=== PATIENT | female | born 1940 | race Caucasian/White ===

== ENCOUNTER 2017-07-18 09:23 | Day surgery (SDC) | payer MEDICARE, BC ==
[~2017-07-18 09:23] MED LIST: Midazolam 1 MG/ML 2 ML SDV ONE; Propofol 200 MG/20 ML SDV ONE; Sodium Chloride 0.9% 10 ML ONE; fentaNYL 100 MCG/2 ML SDV ONE
[2017-07-18] MEDS: Lidocaine 1% with EPINEPHrine 1:100,000 50 ML MDV ONE ×2 (09:57→11:41)
[2017-07-18] MEDS ORDERED: Sodium Chloride 0.9% 1,000 ML IV SCH (10:00)
[2017-07-18] MEDS: Sodium Tetradecyl Sulfate 1% 20 MG/2 ML SDV ONE ×2 (10:05→11:41)
[2017-07-18] MEDS ORDERED: Propofol 200 MG/20 ML SDV ONE (11:29)
[2017-07-18] MEDS: Lidocaine 1% w/EPINEPHrine 50 ML, Sodium Bicarbonate 5 MEQ in Sodium Chloride 0.9% 950 ML INJECT SCH ×2 (11:31→12:00)
[2017-07-18 13:11] VITALS: BP 126/64
--- NOTE | 2017-07-27 11:36 | OR ---
DATE OF PROCEDURE: 07/18/2017 PROCEDURE PERFORMED: 1. Radiofrequency ablation of left greater saphenous vein. 2. Radiofrequency ablation of right greater saphenous vein. 3. Radiofrequency ablation of right anterior accessory vein. 4. Sclerotherapy, left leg, multiple. 5. Sclerotherapy, right leg, multiple. 6. Two-layer/two-stage compression wrapping, left leg ([id number]). 7. Compression wrapping, two-stage, right leg ([id number]). COMPLICATIONS: None. BUOY TENDER: None. ANESTHETIC: MAC/local. INDICATIONS: This is a pleasant 77-year-old female with a significant reflux disease requiring definitive treatment to address her reflux in her greater saphenous veins and anterior accessory veins. RISKS: Risks, benefits, alternatives, limitations including, but not limited to infection, bleeding, DVT formation, chronic nerve injury, and pain were explained to the patient and she wished to proceed. PROCEDURE IN DETAIL: The patient was placed in supine position. Left GSV was identified and accessed first. This was accessed using the standard technique which would be accessing via 21-gauge needle which would then be exchanged for a 35,000th wire. Once this was accessed, the skin was anesthetized with lidocaine. A single liset was created in the skin. A 7-[place] sheath was noted. The RFA probe was then be advanced to 3 cm from the saphenofemoral junction. Tumescent fluid was injected to be 1 cm jacket around this and this would be verified a second and third time. Direct even pressure was deployed as the probe was deployed proximally and distally and x1 in all segments. The sheath and device were then removed. Dermabond be applied. The same procedure was performed in the right leg on the greater saphenous vein and the anterior accessory vein. This was performed in the same manner, same fashion, same technique, in the same sequence using the same equipment. The only difference is, they were doubly accessed using the wire prior to sheath introduction. Once the RFA was deployed and of note, this was verified a 2nd and 3rd time prior to energy deployment as far as 3 cm in saphenofemoral junction. Sheath and device were removed and Dermabond was applied. Sclerotherapy was then performed in left and right legs. There was 6 on the right and 7 on the left. This was performed using 0.33% sodium tetradecyl. This was always drawn back to ensure intravascular injection only. No more than 2 mL injected in one location. A 2-stage [id number] compression wrapping using CoFlex system was then performed, left and right legs. This was performed in a standard [id number] fashion with proximal-to- distal gradient structure. The patient tolerated the procedure well. Kyle Ac MD /[id number]
== END 2017-07-18 13:53 | disposition home or self-care (01) ==
LOC: JP.SDS 09:23
PROVIDERS: ATTEND Surgery
DX: I83.813 Varicose veins of bilateral lower extremities with pain (principal); I10 Essential (primary) hypertension; E78.5 Hyperlipidemia, unspecified; Z98.890 Other specified postprocedural states; Z79.899 Other long term (current) drug therapy
CPT/HCPCS: 36471; 36475; 36476; J1642; J2704; J3010; J7040; J7050; J2250; J3490

== ENCOUNTER 2019-04-07 03:12 | Emergency (ER) | payer MEDICARE, BC ==
[2019-04-07] MEDS ORDERED: LORazepam 2 MG/ML SDV IVPUSH ONE (03:28)
[2019-04-07] MEDS ORDERED: Ondansetron 4 MG/2 ML SDV IVPUSH ONE (03:28)
[2019-04-07] MEDS ORDERED: methylPREDNISolone Sodium Succinate 125 MG/2 ML SDV IVPUSH ONE (03:30)
--- NOTE | 2019-04-07 03:36 | EDM.PDOC ---
<Jose Miguel Mcdonald - Last Filed: 04/07/19 06:55> ED HPI GENERAL MEDICAL PROBLEM - General Chief Complaint: Neurological Problem Stated Complaint: LIGHT HEADED,THROWING,DIZZY Time Seen by Provider: 04/07/19 03:25 Source of Information: Reports: Patient, Family History Limitations: Reports: No Limitations - History of Present Illness INITIAL COMMENTS - FREE TEXT/NARRATIVE: 78-year-old female woke tonight feeling vertiginous, unsteady, and became nauseous. She has no pain. She has not had symptoms like this in the past, however she does tend to get dehydrated easy. She has vomited several times and feels "lousy". When lying still she feels a little better. No headache, visual complaints, peripheral weakness or diarrhea. Onset: Sudden (When the patient went to bed last night she was fine, when she woke at 1 AM she had symptoms) Worsens with: Reports: Movement Associated Symptoms: Reports: Malaise, Nausea/Vomiting, Weakness. Denies: Confusion, Fever/Chills, Headaches Chest Pain Score (Numeric/FACES): 1 - Related Data Allergies Allergy/AdvReac Type Severity Reaction Status Date / Time tetanus toxoid, adsorbed Allergy Severe Anaphylactic Verified 04/07/19 03:18 Shock Home Meds: Home Meds hydroCHLOROthiazide [Hydrochlorothiazide] 25 mg PO DAILY 03/08/14 [History] Acetaminophen [Tylenol] 650 mg PO Q4H PRN #0 cup 10/11/16 [Rx] Latanoprost [Xalatan 0.005% Ophth Soln] 1 drop EYEBOTH DAILY 07/18/17 [History] Timolol [Betimol 0.5% Ophth Soln] 1 drop EYEBOTH DAILY 07/18/17 [History] Past Medical History HEENT History: Reports: Cataract, Glaucoma, Impaired Vision Cardiovascular History: Reports: High Cholesterol, Hypertension Respiratory History: Reports: Bronchitis, Recurrent Gastrointestinal History: Reports: Chronic Diarrhea, GERD, Hiatal Hernia Genitourinary History: Reports: None TELEPHONE INFORMATION SUPERVISOR History: Reports: Other TELEPHONE INFORMATION SUPERVISOR History: blatter sling Musculoskeletal History: Reports: Osteoarthritis Endocrine/Metabolic History: Reports: None - Infectious Disease History Infectious Disease History: Reports: Chicken Pox - Past Surgical History HEENT Surgical History: Reports: Adenoidectomy, Cataract Surgery, Tonsillectomy GI Surgical History: Reports: Colonoscopy, EGD, David Fundoplication Female Surgical History: Reports: Hysterectomy, Oophorectomy Musculoskeletal Surgical History: Reports: Arthroscopic Knee, Shoulder Surgery Social & Family History - Family History Family Medical History: Noncontributory - Tobacco Use Smoking Status *Q: Never Smoker - Caffeine Use Caffeine Use: Reports: Coffee - Recreational Drug Use Recreational Drug Use: No ED ROS GENERAL - Review of Systems Review Of Systems: See Below Constitutional: Reports: Malaise, Decreased Appetite. Denies: Fever, Chills HEENT: Reports: No Symptoms Respiratory: Denies: Shortness of Breath, Cough Cardiovascular: Denies: Chest Pain GI/Abdominal: Reports: Nausea, Vomiting. Denies: Abdominal Pain, Diarrhea : Reports: No Symptoms Skin: Reports: No Symptoms Neurological: Reports: Dizziness. Denies: Headache ED EXAM, DIZZINESS - Physical Exam Exam: See Below Exam Limited By: No Limitations General Appearance: Alert, Mild Distress (Actively retching, very uncomfortable) Eye Exam: Bilateral Eye: Nystagmus (Slight nystagmus both directions) Ears: Normal TMs Head Exam: Atraumatic Neck: Supple, Non-Tender Respiratory/Chest: No Respiratory Distress, Lungs Clear Cardiovascular: Regular Rate, Rhythm GI/Abdominal: Soft, Non-Tender Neurological: Alert, No Motor/Sensory Deficits, Oriented x 3 Extremities: Normal Inspection. No: Pedal Edema Psychiatric: Flat Affect Skin Exam: Warm, Dry Course - Vital Signs Last Recorded V/S: Last Vital Signs Temp 35.7 C 04/07/19 08:58 Pulse 65 04/07/19 08:58 Resp 16 04/07/19 08:58 BP 112/63 04/07/19 08:58 Pulse Ox 96 04/07/19 08:58 - Orders/Labs/Meds Orders: Active Orders 24 hr Category Date Time Status Sodium Chloride 0.9% [Normal Saline] 1,000 ml Med 04/07/19 03:45 Active IV ASDIRECTED Sodium Chloride 0.9% [Normal Saline] 1,000 ml Med 04/07/19 07:15 Active IV ASDIRECTED Medication Orders Sodium Chloride (Normal Saline) 1,000 mls @ 500 mls/hr IV ASDIRECTED EMETERIO Last Admin: 04/07/19 03:49 Dose: 500 mls/hr Sodium Chloride (Normal Saline) 1,000 mls @ 999 mls/hr IV ASDIRECTED EMETERIO Last Admin: 04/07/19 07:20 Dose: 999 mls/hr Labs: Laboratory Tests 04/07/19 04/07/19 04/07/19 Range/Units 03:42 03:42 03:46 WBC 7.0 (4.5-11.0) K/uL RBC 4.54 (3.30-5.50) M/uL Hgb 12.4 (12.0-15.0) g/dL Hct 37.5 (36.0-48.0) % MCV 83 (80-98) fL MCH 27 (27-31) pg MCHC 33 (32-36) % Plt Count 241 (150-400) K/uL Neut % (Auto) 61 (36-66) % Lymph % (Auto) 26 (24-44) % Tate % (Auto) 9 H (2-6) % Eos % (Auto) 4 (2-4) % Baso % (Auto) 0 (0-1) % Sodium 141 (140-148) mmol/L Potassium 3.6 (3.6-5.2) mmol/L Chloride 105 (100-108) mmol/L Carbon Dioxide 25 (21-32) mmol/L Anion Gap 11.0 (5.0-14.0) mmol/L BUN 25 H D (7-18) mg/dL Creatinine 1.1 H (0.6-1.0) mg/dL Est Cr Clr Drug Dosing 37.32 mL/min Estimated GFR (MDRD) 48 L (>60) Glucose 136 H (74-106) mg/dL Calcium 9.1 (8.5-10.1) mg/dL Total Bilirubin 0.3 (0.2-1.0) mg/dL AST 22 (15-37) U/L ALT 26 (12-78) U/L Alkaline Phosphatase 119 H (46-116) U/L Troponin I < 0.017 (0.000-0.056) ng/mL Total Protein 6.8 (6.4-8.2) g/dL Albumin 3.7 (3.4-5.0) g/dL Globulin 3.1 (2.3-3.5) g/dL Albumin/Globulin Ratio 1.2 (1.2-2.2) Meds: Medications Generic Name Dose Route Start Last Admin Trade Name Freq PRN Reason Stop Dose Admin Sodium Chloride 1,000 mls @ 500 mls/hr 04/07/19 03:45 04/07/19 03:49 Normal Saline IV 500 mls/hr ASDIRECTED EMETERIO Administration Sodium Chloride 1,000 mls @ 999 mls/hr 04/07/19 07:15 04/07/19 07:20 Normal Saline IV 999 mls/hr ASDIRECTED EMETERIO Administration Discontinued Medications Generic Name Dose Route Start Last Admin Trade Name Jesusita PRN Reason Stop Dose Admin Lorazepam 0.5 mg 04/07/19 03:28 04/07/19 03:42 Ativan IVPUSH 04/07/19 03:29 0.5 mg ONETIME ONE Administration Meclizine HCl 25 mg 04/07/19 07:14 04/07/19 07:17 Antivert PO 04/07/19 07:15 25 mg ONETIME ONE Administration Methylprednisolone Sodium Succinate 62.5 mg 04/07/19 03:30 04/07/19 03:47 Solu-Medrol IVPUSH 04/07/19 03:31 62.5 mg ONETIME ONE Administration Ondansetron HCl 4 mg 04/07/19 03:28 04/07/19 03:43 Zofran IVPUSH 04/07/19 03:29 4 mg ONETIME ONE Administration - Re-Assessments/Exams Free Text/Narrative Re-Assessment/Exam: 04/07/19 03:39 An IV was started and the patient will be given 62.5 mg of Solu-Medrol, 0.5 mg of Ativan and 4 mg of IV Zofran. She'll be given 1 L of fluid and reevaluated. CBC and CMP were obtained, intent is to get a head CT in 1-2 hours and consider admission if she doesn't improve. 04/07/19 05:58 Labs returned reassuring. Mild renal insufficiency or dehydration indicated on the labs not far off from previous levels. Electrolytes normal, CBC normal. Nausea resolved. Head CT without contrast was performed. 04/07/19 06:[address] was normal. Patient was slowly feeling better. She would like to rest a little while longer before attempting to ambulate. Disposition was turned over to Dr. Bassett. Departure - Departure Disposition: Home, Self-Care 01 Clinical Impression: Vertigo Nausea and vomiting Qualifiers: Vomiting type: unspecified Vomiting Intractability: non-intractable Qualified Code(s): R11.2 - Nausea with vomiting, unspecified - Discharge Information Referrals: Fran De La Torre MD [Primary Care Provider] - Forms: ED Department Discharge Care Plan Goals: rest antivert 25 tid for the next 2 days and then prn, rtc if the situation should get worse. - My Orders Last 24 Hours: My Active Orders 04/07/19 07:15 Sodium Chloride 0.9% [Normal Saline] 1,000 ml IV ASDIRECTED - Assessment/Plan Last 24 Hours: My Active Orders 04/07/19 07:15 Sodium Chloride 0.9% [Normal Saline] 1,000 ml IV ASDIRECTED <Otilia Bassett - Last Filed: 04/07/19 09:11> Course - Re-Assessments/Exams Free Text/Narrative Re-Assessment/Exam: 04/07/19 08:23 pt gotup and was very off balance. She states the room was spinning lot. She was given another liter of fluid and antivert 25 mg. Will continue to watch in ER if not improving will consider admission. 04/07/19 09:09 pt is feeling some better. she still has some vertigo when she gets up. She does want to go to rest and not be admitted. Departure - Departure Time of Disposition: 09:10
[2019-04-07] MEDS ORDERED: Sodium Chloride 0.9% 1,000 ML IV SCH ×2 (03:45→07:15)
--- NOTE | 2019-04-07 06:45 | CRLCT ---
INDICATION : Nausea, vertigo sudden onset. COMPARISON : None. TECHNIQUE: CT head without contrast. FINDINGS: CSF spaces: Within normal limits for age. Brain parenchyma: The mcdaniel-white differentiation is normal. No sign of mass, hemorrhage, or midline shift. Skull base and calvarium: The visualized paranasal sinuses and mastoid air cells demonstrate no acute or significant findings. The visualized orbits are grossly unremarkable. No skull fractures. IMPRESSION: Unremarkable noncontrast head CT. Please note that all CT scans at this facility use dose modulation, iterative reconstruction, and/or weight-based dosing when appropriate to reduce radiation dose to as low as reasonably achievable. Dictated by Barry Wells MD @ Apr 07 2019 6:41AM Signed by Dr. Barry Wells @ Apr 07 2019 6:44AM
[2019-04-07] MEDS ORDERED: Meclizine 25 MG Tab PO ONE (07:14)
[2019-04-07 08:59] VITALS: BP 112/63; PULSE 65
== END 2019-04-07 09:23 | disposition home or self-care (01) ==
LOC: JP.ED 03:12
DX: R42 Dizziness and giddiness (principal); R11.2 Nausea with vomiting, unspecified; E78.00 Pure hypercholesterolemia, unspecified; I10 Essential (primary) hypertension; Z88.7 Allergy status to serum and vaccine; Z79.899 Other long term (current) drug therapy
CPT/HCPCS: 36415; 70450; 80053; 84484; 85025; 96361; 96374; 96375; 99284; A9270; J2060; J2405; J2930; J7030

== ENCOUNTER 2019-06-29 07:40 | Inpatient (IN) | payer MEDICARE, BC ==
[2019-06-29] MEDS ORDERED: ceFAZolin 2 GM in Sodium Chloride 0.9% 50 ML IV ONE (08:00)
[2019-06-29] MEDS ORDERED: Acetaminophen 500 MG Tab PO ONE (08:00)
[2019-06-29] MEDS ORDERED: Scopolamine 1.5 MG Transdermal Patch TOP ONE (08:00)
[2019-06-29] MEDS ORDERED: fentaNYL 250 MCG/5 ML SDV ONE (08:35)
[2019-06-29] MEDS ORDERED: Rocuronium 50 MG/5 ML Vial ONE (08:36)
[2019-06-29] MEDS ORDERED: Glycopyrrolate 0.2 MG/ML 5 ML MDV ONE (08:36)
[2019-06-29] MEDS ORDERED: Dexamethasone 4 MG/ML SDV ONE (08:36)
[2019-06-29] MEDS ORDERED: Propofol 200 MG/20 ML SDV ONE (08:36)
[2019-06-29] MEDS ORDERED: Succinylcholine 200 MG/10 ML MDV ONE (08:36)
[2019-06-29] MEDS ORDERED: Neostigmine Methylsulfate 1 MG/ML 5 ML Syringe ONE (08:36)
[2019-06-29] MEDS ORDERED: Ondansetron 4 MG/2 ML SDV ONE (08:36)
[2019-06-29] MEDS: Dextrose 5%-Lactated Ringers 1,000 ML IV SCH ×2 (09:04→18:10)
[2019-06-29] MEDS ORDERED: ePHEDrine 50 MG/ML SDV ONE (11:23)
[2019-06-29] MEDS ORDERED: Lactated Ringers 1,000 ML ONE (12:24)
[2019-06-29] MEDS ORDERED: HYDROmorphone 1 MG/ML Syringe IV PRN (14:44)
[2019-06-29] MEDS ORDERED: Ondansetron 4 MG/2 ML SDV IVPUSH PRN (14:44)
[2019-06-29] MEDS ORDERED: HYDROmorphone 0.5 MG/0.5 ML Syringe IVPUSH PRN (14:44)
[2019-06-29] MEDS: Acetaminophen 325 MG Tab PO SCH ×2 (16:30→21:55)
[2019-06-29] MEDS: ceFAZolin 1 GM in Premix Bag 1 BAG IV SCH (18:02)
[2019-06-29] MEDS: Latanoprost 0.005% Ophth Soln 2.5 ML Bottle EYEBOTH SCH (20:56)
[2019-06-30] MEDS: ceFAZolin 1 GM in Premix Bag 1 BAG IV SCH ×2 (01:53→10:13)
[2019-06-30] MEDS: Acetaminophen 325 MG Tab PO SCH ×5 (04:05→21:22)
[2019-06-30] MEDS: Dextrose 5%-Lactated Ringers 1,000 ML IV SCH (04:38)
[2019-06-30] MEDS ORDERED: Tamsulosin 0.4 MG Cap.ER PO SCH ×2 (09:00→21:00)
[2019-06-30] MEDS: Hydrochlorothiazide 25 MG Tab PO SCH (09:23)
[2019-06-30] MEDS: Timolol Maleate 0.5% Ophth Soln 5 ML Bottle EYEBOTH SCH (09:23)
[2019-06-30] MEDS: SCOPOLAMINE PATCH CHECK TOP SCH (09:24)
[2019-06-30] MEDS: Latanoprost 0.005% Ophth Soln 2.5 ML Bottle EYEBOTH SCH (20:56)
[2019-07-01] MEDS: Acetaminophen 325 MG Tab PO SCH ×2 (04:01→09:28)
[2019-07-01 07:23] VITALS: BP 148/66; PULSE 56
[2019-07-01] MEDS: Hydrochlorothiazide 25 MG Tab PO SCH (08:27)
[2019-07-01] MEDS: Timolol Maleate 0.5% Ophth Soln 5 ML Bottle EYEBOTH SCH (08:27)
[2019-07-01] MEDS: SCOPOLAMINE PATCH CHECK TOP SCH (08:30)
--- NOTE | 2019-07-01 09:43 | DISCH ---
ADMISSION DIAGNOSIS: Massive enlarged left thyroid lobe. DISCHARGE DIAGNOSIS: Thyroid exploration with left thyroid lobectomy and ischiectomy including excision of substernal goiter for massive enlarged left thyroid lobe with large substernal components and right tracheal deviation, single small 1 cm nodule within the goiter, benign by frozen section. Date of surgery: 06/29/2019. Surgeon: Jude Ornelas MD. HISTORY: Sol Anne is a 78-year-old female with above chief complaint. After preoperative evaluation and discussion of possible risks and possible complications, she wished to proceed with surgical procedure. HOSPITAL COURSE: Sol had her surgery on 06/29/2019. She had no operative complications with exception of urinary retention, so her Mares was placed and replaced on operative day, then discontinued this a.m., and she did void, so was able to be discharged to home. Pain has been controlled. Activity good. Vital signs stable. REVIEW OF SYSTEMS: Remainder of review of systems negative for any pertinent positives and negatives. OBJECTIVE: GENERAL: Sol Anne is a pleasant 78-year-old female. VITAL SIGNS: Height is 5 feet 5 inches, weight is 140 pounds, BMI is 23. TPR is 97.8, 56, 16, blood pressure 148/66. NECK: Reveals Steri-Stripped thyroid incision. No hematoma is noted. She has a ELIZABETH drain in that incision, which drained 10 mL of a dark red drainage. HEART: Regular rate and rhythm. LUNGS: Clear. ABDOMEN: Soft, nontender. EXTREMITIES: Without peripheral edema. DISPOSITION: Discharged to home. CONDITION: Stable and improving. MEDICATIONS: To restart all home medications. 1. Hydrochlorothiazide 25 mg p.o. daily. 2. Timolol (Betimol) 0.5% ophthalmic solution one drop in each eye daily. 3. Latanoprost/Xalatan 0.005% ophthalmic solution one drop in both eyes at bedtime. 4. Tylenol 650 mg p.o. q.6 hours p.r.n. pain. FOLLOWUP: Appointment with Ignacia Soria PA-C, on 07/09/2019 at 9:15 a.m. DIET: Usual diet as tolerated. Drink 8 to 10 glasses of water a day. Avoid hard crunchy foods. ACTIVITY: As tolerated. Avoid repetitive neck movement. Do not drive for 1 week. Shower/bathing; may shower. Wound incision care; keep operative site clean and dry. DISCHARGE INSTRUCTIONS: Notify provider if any fever, increased pain, swelling, redness, drainage, nausea, vomiting. SPECIAL INSTRUCTIONS: Strip and empty ELIZABETH drain 4 times a day.
--- NOTE | 2019-07-02 10:53 | PN ---
DATE OF SERVICE: 06/30/2019 The patient has been afebrile with stable vital signs. Her main complaint was frequent urination overnight, every hour, more or less, only a few mL. A bladder scan was obtained, which showed 650 mL. We will, therefore, place a Mares catheter and begin some Flomax today. We will try getting Mares catheter out tomorrow. She will need to be switched over to inpatient status due to the urinary retention. Otherwise, from a thyroid standpoint, she is doing well. We will go up to regular diet and she is having little in the way of pain at this point. Jude Ornelas MD /[id number]
--- NOTE | 2019-07-10 11:47 | OR ---
DATE OF PROCEDURE: 06/29/2019 SURGEON: Jude Ornelas MD PREOPERATIVE DIAGNOSIS: Large left substernal goiter with pressure symptoms and inability to obtain adequate tissue diagnosis due to abundant blood supply. POSTOPERATIVE DIAGNOSIS: Large left substernal goiter with pressure symptoms and inability to obtain adequate tissue diagnosis due to abundant blood supply. OPERATIVE PROCEDURE: Thyroid exploration with left thyroid lobectomy and isthmusectomy including excision of large left substernal goiter (81712). ANESTHESIA: General. PODIATRIST ASSISTANT: Ignacia Soria PA-C. INDICATIONS FOR PROCEDURE: This is a 78-year-old presenting with an increasingly enlarging left substernal thyroid and CT scan that shows quite a bit of rightward displacement of the trachea and esophagus. Fine-needle aspiration was attempted with 3 sizes of needles. In each case, the aspiration syringe immediately filled with blood due to large amount of blood supply involving the lesion. Given the uncertainty of the diagnosis, as well as increasing pressure symptoms likely resulting in some worsening in patient's respiratory status, the patient is undergoing a left thyroid lobectomy and resection of the substernal goiter. Frozen section will be obtained in the event that a malignancy is identified at that time, which would then necessitate a total thyroidectomy. Potential risks of the procedure including bleeding, infection, injury to the recurrent laryngeal nerve or parathyroid glands, possibility of needing a total thyroidectomy were reviewed. The need to begin long- term thyroid replacement therapy was also gone over, even if a lobectomy is undertaken, so as to avoid enlargement of the remaining right lobe. DETAILS OF PROCEDURE: The patient was taken to the operating room and placed in a supine position. After general endotracheal anesthesia was induced, the upper chest and neck were prepped and draped. A transverse collar incision was then made and carried down through the skin and subcutaneous tissue and through the platysmal layers. Subplatysmal flaps were then raised superiorly and inferiorly, and the strap muscles were then divided in the midline. General palpation of the right side of the thyroid through the strap muscles did not reveal any unexpected findings and left side was potentially not further dissected, so if later operation would be required, the planes of dissection will be unperturbed. Strap muscles were then retracted off the left thyroid and the suprasternal portion of gland was then initially mobilized medially and the middle thyroid vein and then the upper pole vessels were taken down with Harmonic scalpel. This then allowed blunt dissection down into the mediastinum. This extended well down onto the area of the aortic arch with displacement of both the left common carotid artery and left subclavian artery. As these areas were palpated with the plane of blunt dissection, the gland eventually then came up and the inferior thyroid vein was divided, as well some additional venous tributaries coming into the goiter. The size of the goiter below the neck was roughly the size of a chicken egg. At this point, the junction of the right lobe and the isthmus were divided with Harmonic scalpel and the inferior thyroid artery branches were then divided flush with the thyroid capsule, reflecting the 2 visible parathyroid glands away from the substance of the thyroid gland with evidently adequately maintaining blood supply. During the course of dissection, the recurrent laryngeal nerve was identified and noted to be preserved at the conclusion of the procedure. The remaining attachments on the trachea were then taken with Harmonic scalpel as well and specimen delivered from the field. Additional pathologic exam was generally that of a large benign-appearing goiter , where there was a roughly 1 cm nodule away from the surface of the gland, which was grossly mildly suspicious. Frozen section did not appear to be suspicious for malignancy, however. At this point, the area of dissection was inspected. There was no bleeding or other problems noted. The size of the dissection did mandate placement of 7-Greek Jarvis-Luis drain through a stab wound lateral to the main incision and draped from there into the left thyroid bed and into the upper mediastinum. The strap muscles were then approximated in the midline with 3-0 Vicryl stitch, the platysmal layers with 4-0 Vicryl stitch, and skin with a 5-0 Vicryl subcuticular stitch. Drain was affixed with 4-0 Vicryl stitch and dressing applied. The patient was taken to the recovery room in satisfactory condition. There were no evident complications. Physician first assistant manager, Ignacia Soria, played an essential role in assisting in this case, helping to position the patient, retract structures as needed, as well as suturing and cutting sutures when indicated. Her presence improved patient safety and decreased operative time. Jude Ornelas MD /[id number]
== END 2019-07-01 10:08 | disposition home or self-care (01) | DRG 627 ==
LOC: JP.SDS 07:40 → JP.SDSSCHI 07:40 → EDSTATUS 09:00 → JP.MS 12:47
PROVIDERS: ADMIT Surgery; ATTEND Surgery
PROC: 0GBG0ZZ Excision of Left Thyroid Gland Lobe, Open Approach (ICD-10-PCS; principal; 2019-06-29)
PROC: 0GBJ0ZZ Excision of Thyroid Gland Isthmus, Open Approach (ICD-10-PCS; 2019-06-29)
DX: E04.1 Nontoxic single thyroid nodule (principal); J39.8 Other specified diseases of upper respiratory tract; E78.5 Hyperlipidemia, unspecified; I10 Essential (primary) hypertension; H40.9 Unspecified glaucoma; R33.9 Retention of urine, unspecified; R35.0 Frequency of micturition; D86.0 Sarcoidosis of lung; E55.9 Vitamin D deficiency, unspecified; Z90.89 Acquired absence of other organs; Z98.890 Other specified postprocedural states; Z79.899 Other long term (current) drug therapy; Z88.7 Allergy status to serum and vaccine; Z88.8 Allergy status to other drugs, medicaments and biological substances; Z91.040 Latex allergy status
CPT/HCPCS: 36415; 51701; 51702; 80048; 80053; 83735; 84100; 84443; 85025; 85027; 88307; 88331; 94762; A9270-GY; J0330; J0690; J1100; J2020; J2405; J2704; J2710; J3010; J3490; J7042; J7050; J7120

== ENCOUNTER 2021-12-27 05:37 | Day surgery (SDC) | payer MEDICARE, BC ==
[2021-12-27] MEDS ORDERED: Lactated Ringers 1,000 ML IV SCH (06:00)
[2021-12-27] MEDS ORDERED: Nozin Nasal Sanitizer NASBOTH ONE (06:00)
[2021-12-27] MEDS ORDERED: ceFAZolin 1 GM in Premix Bag 1 BAG IV ONE (07:00)
[2021-12-27] MEDS ORDERED: Bupivacaine 0.5% 30 ML SDV ONE (07:09)
[2021-12-27] MEDS ORDERED: Lidocaine 0.5% 50 ML SDV ONE (07:32)
[2021-12-27] MEDS ORDERED: fentaNYL 100 MCG/2 ML SDV ONE (07:32)
[2021-12-27] MEDS ORDERED: Propofol 200 MG/20 ML SDV ONE (07:32)
[2021-12-27] MEDS ORDERED: Midazolam 1 MG/ML 2 ML SDV ONE (07:32)
[2021-12-27] MEDS ORDERED: Ondansetron 4 MG/2 ML SDV ONE (08:11)
[2021-12-27 09:41] VITALS: BP 130/64; PULSE 57
== END 2021-12-27 10:29 | disposition home or self-care (01) ==
LOC: JP.SDS 05:37
PROVIDERS: ATTEND Specialist
DX: M65.351 Trigger finger, right little finger (principal); I10 Essential (primary) hypertension; J44.9 Chronic obstructive pulmonary disease, unspecified; K21.9 Gastro-esophageal reflux disease without esophagitis; E78.5 Hyperlipidemia, unspecified; Z87.891 Personal history of nicotine dependence
CPT/HCPCS: 26055; 36415; 80053; 85027; A9270-GY; J0690; J2250; J2405; J2704; J3010; J3490; J7120

== ENCOUNTER 2022-08-18 19:10 | Emergency (ER) | payer MEDICARE, BC ==
[2022-08-18 19:21] VITALS: BP 155/81; PULSE 73
== END 2022-08-18 20:07 | disposition home or self-care (01) ==
LOC: JP.ED 19:10
DX: J18.9 Pneumonia, unspecified organism (principal); J38.5 Laryngeal spasm; E78.00 Pure hypercholesterolemia, unspecified; I10 Essential (primary) hypertension; Z88.7 Allergy status to serum and vaccine; Z91.040 Latex allergy status; Z79.899 Other long term (current) drug therapy; Z88.8 Allergy status to other drugs, medicaments and biological substances; Z90.710 Acquired absence of both cervix and uterus
CPT/HCPCS: 99283

== ENCOUNTER 2023-02-25 06:12 | Inpatient (IN) | payer MEDICARE, BC ==
[2023-02-25] MEDS ORDERED: Bupivacaine 0.5% 50 ML MDV ONE (06:46)
[2023-02-25 06:48] LABS: HEMATOCRIT 35.8 % (34.3-46.0); HEMOGLOBIN 12.2 g/dL (11.2-15.5); MEAN CORPUSCULAR HEMOGLOBIN 27.5 pg (31.6-35.5); MEAN CORPUSCULAR HGB CONC 34.1 g/dL (31.6-35.5); MEAN CORPUSCULAR VOLUME 80.8 fL (81.4-99.0); RED BLOOD CELL COUNT 4.43 M/uL (3.77-5.24); WHITE BLOOD CELL COUNT,WBC 5.1 K/uL (3.2-11.0)
[2023-02-25] MEDS ORDERED: Lactated Ringers 1,000 ML IV SCH (07:00)
[2023-02-25 07:09] LABS: A/G RATIO 1.2 (1.2-2.2); ALANINE AMINOTRANSFERASE,ALT 24 U/L (12-78); ALBUMIN 4.1 g/dL (3.4-5.0); ALKALINE PHOSPHATASE 116 U/L (46-116); ASPARTATE AMNIOTRANSFERASE,AST 23 U/L (15-37); BILIRUBIN TOTAL 0.5 mg/dL (0.2-1.0); BLOOD UREA NITROGEN,BUN 21 mg/dL (7-18); CALCIUM 8.8 mg/dL (8.5-10.1); CARBON DIOXIDE,CO2 24 mmol/L (21-32); CHLORIDE,CL 98 mmol/L (100-108); CREATININE 1.3 mg/dL (0.6-1.0); EST CRCL DRUG DOSING (CG) 27.12 mL/min; ESTIMATED GFR 41 mL/min (>60); GLUCOSE RANDOM 111 mg/dL (74-106); POTASSIUM,K 3.7 mmol/L (3.6-5.2); PROTEIN TOTAL,TP 7.4 g/dL (6.4-8.2); SODIUM,NA 135 mmol/L (140-148)
[2023-02-25 07:10] LABS: ANION GAP 16.7 mmol/L (5.0-14.0)
[2023-02-25] MEDS ORDERED: Propofol 200 MG/20 ML SDV ONE (07:12)
[2023-02-25] MEDS ORDERED: fentaNYL 100 MCG/2 ML SDV ONE (07:12)
[2023-02-25] MEDS ORDERED: Ondansetron 4 MG/2 ML SDV ONE (07:12)
[2023-02-25] MEDS: Nozin Nasal Sanitizer NASBOTH SCH ×2 (07:15→20:08)
[2023-02-25] MEDS ORDERED: Glycopyrrolate 0.2 MG/ML 5 ML MDV ONE (07:16)
[2023-02-25] MEDS ORDERED: Sodium Chloride 0.9% 10 ML ONE (07:17)
[2023-02-25] MEDS ORDERED: ePHEDrine 50 MG/ML SDV ONE (07:17)
[2023-02-25] MEDS ORDERED: ceFAZolin 2 GM in Premix Bag 1 BAG IV ONE (07:30)
[2023-02-25] MEDS ORDERED: Tranexamic Acid 650 MG in Sodium Chloride 0.9% 50 ML IV ONE (08:00)
[2023-02-25] MEDS ORDERED: Midazolam 1 MG/ML 2 ML SDV ONE (08:41)
[2023-02-25] MEDS ORDERED: Docusate Sodium 100 MG Cap PO PRN (09:54)
[2023-02-25] MEDS ORDERED: Ketorolac 30 MG/ML SDV IVPUSH PRN (09:54)
[2023-02-25] MEDS ORDERED: Morphine 2 MG/ML SYRINGE IVPUSH PRN (09:54)
[2023-02-25] MEDS ORDERED: oxyCODONE 5 MG Tab PO PRN (09:54)
[2023-02-25] MEDS ORDERED: ceFAZolin 1 GM in Sodium Chloride 0.9% 50 ML IV SCH (10:00)
[2023-02-25] MEDS: Sodium Chloride 0.9% 1,000 ML IV SCH ×2 (11:31→20:51)
[2023-02-25] MEDS: Acetaminophen 325 MG Tab PO SCH ×2 (14:10→19:27)
[2023-02-25] MEDS: Ondansetron 4 MG/2 ML SDV IVPUSH PRN (14:10)
[2023-02-25] MEDS: ceFAZolin 1 GM in Premix Bag 1 BAG IV SCH (18:14)
[2023-02-25] MEDS: Aspirin 325 MG Tab.EC PO SCH (20:09)
[2023-02-25] MEDS: Latanoprost 0.005% Ophth Soln 2.5 ML Bottle EYEBOTH SCH (20:10)
[2023-02-25] MEDS: atorvaSTATin 10 MG Tab PO SCH (20:10)
[2023-02-25] MEDS: Tamsulosin 0.4 MG Cap.ER PO SCH (20:15)
[2023-02-25] MEDS ORDERED: Nozin Nasal Sanitizer NASBOTH SCH (21:00)
[2023-02-25] MEDS ORDERED: Non-Formulary Medication 1 Each PO SCH (21:00)
[2023-02-25] MEDS: Ketorolac 15 MG/ML SDV IVPUSH PRN (21:13)
[2023-02-26] MEDS: Acetaminophen 325 MG Tab PO SCH ×4 (02:38→19:40)
[2023-02-26] MEDS: Sodium Chloride 0.9% 1,000 ML IV SCH ×2 (04:59→13:21)
[2023-02-26] MEDS: Ondansetron 4 MG/2 ML SDV IVPUSH PRN ×2 (05:15→14:20)
[2023-02-26] MEDS: oxyCODONE 5 MG Tab PO PRN ×2 (05:44→22:00)
[2023-02-26] MEDS: ceFAZolin 1 GM in Premix Bag 1 BAG IV SCH ×2 (05:51→18:17)
[2023-02-26] MEDS: Levothyroxine 25 MCG Tab PO SCH (07:01)
[2023-02-26] MEDS: Ketorolac 15 MG/ML SDV IVPUSH PRN ×2 (08:07→19:40)
[2023-02-26] MEDS: Nozin Nasal Sanitizer NASBOTH SCH ×2 (08:32→21:26)
[2023-02-26] MEDS: Aspirin 325 MG Tab.EC PO SCH ×2 (08:33→21:26)
[2023-02-26] MEDS: Multivitamins with Iron/Calcium/Folic Acid/Minerals Tab PO SCH (08:33)
[2023-02-26] MEDS: Timolol Maleate 0.5% Ophth Soln 5 ML Bottle EYEBOTH SCH (08:33)
[2023-02-26] MEDS ORDERED: Non-Formulary Medication 1 Each (L.Acidoph,Paracasei, B.Lactis [Probiotic] 1 EACH Capsule) PO SCH (09:00)
[2023-02-26] MEDS ORDERED: Hydrochlorothiazide 25 MG Tab PO SCH (09:00)
[2023-02-26] MEDS: Fish Oil/Omega-3 Fatty Acids 1 Gm Cap PO SCH ×2 (09:15→21:26)
[2023-02-26] MEDS: Lactobacillus Rhamnosus GG (Probiotic) Cap PO SCH (09:16)
[2023-02-26] MEDS ORDERED: Sodium Chloride 0.9% 500 ML IV SCH (18:00)
[2023-02-26] MEDS: atorvaSTATin 10 MG Tab PO SCH (21:26)
[2023-02-26] MEDS: Latanoprost 0.005% Ophth Soln 2.5 ML Bottle EYEBOTH SCH (21:26)
[2023-02-26] MEDS: Tamsulosin 0.4 MG Cap.ER PO SCH (21:26)
[2023-02-27] MEDS: Sodium Chloride 0.9% 1,000 ML IV SCH (00:15)
[2023-02-27] MEDS: Acetaminophen 325 MG Tab PO SCH ×3 (01:00→13:54)
[2023-02-27] MEDS: Levothyroxine 25 MCG Tab PO SCH (07:54)
[2023-02-27] MEDS: Lactobacillus Rhamnosus GG (Probiotic) Cap PO SCH (09:07)
[2023-02-27] MEDS: Aspirin 325 MG Tab.EC PO SCH (09:07)
[2023-02-27] MEDS: Timolol Maleate 0.5% Ophth Soln 5 ML Bottle EYEBOTH SCH (09:08)
[2023-02-27] MEDS: Multivitamins with Iron/Calcium/Folic Acid/Minerals Tab PO SCH (09:08)
[2023-02-27] MEDS: Nozin Nasal Sanitizer NASBOTH SCH (09:08)
[2023-02-27] MEDS: Fish Oil/Omega-3 Fatty Acids 1 Gm Cap PO SCH (09:08)
[2023-02-27 11:58] VITALS: BP 122/94; PULSE 55
== END 2023-02-27 15:30 | disposition home or self-care (01) | DRG 470 ==
LOC: JP.SDS 06:12 → JP.MS 09:54 → JP.SDS 02-26 19:16
PROVIDERS: ADMIT Specialist; ATTEND Specialist
PROC: 0SRC069 Replacement of Right Knee Joint with Oxidized Zirconium on Polyethylene Synthetic Substitute, Cemented, Open Approach (ICD-10-PCS; principal; 2023-02-25)
DX: M17.11 Unilateral primary osteoarthritis, right knee (principal); K21.9 Gastro-esophageal reflux disease without esophagitis; E78.5 Hyperlipidemia, unspecified; R00.1 Bradycardia, unspecified; R33.9 Retention of urine, unspecified; Z98.890 Other specified postprocedural states; Z79.899 Other long term (current) drug therapy
CPT/HCPCS: 36415; 51702; 51798; 73560-26-RT; 73560-RT; 80053; 85027; 97110-GP; 97116-GP; 97161-GP; 97165-GO; 97530-GP; A9270-GY; C1713; C1776; J0690; J1885; J2250; J2405; J2704; J3010; J3490; J7030; J7120

== ENCOUNTER 2023-05-28 15:39 | Emergency (ER) | payer MEDICARE, BC ==
[2023-05-28] MEDS ORDERED: Sodium Chloride 0.9% 10 ML Syringe FLUSH PRN (17:28)
[2023-05-28] MEDS ORDERED: Sodium Chloride 0.9% 1,000 ML IV ONE (17:29)
[2023-05-28 17:44] LABS: BASOPHILS ABSOLUTE AUTO 0.03 K/uL (0.00-0.10); BASOPHILS PERCENT AUTO 0.3 % (0.1-1.3); EOSINOPHILS ABSOLUTE AUTO 0.13 K/uL (0.00-0.40); EOSINOPHILS PERCENT AUTO 1.3 % (0.0-5.4); HEMATOCRIT 32.8 % (34.3-46.0); HEMOGLOBIN 11.3 g/dL (11.2-15.5); IMMATURE GRAN ABSOLUTE AUTO 0.05 K/uL (0.00-0.23); IMMATURE GRAN PERCENT AUTO 0.5 % (0.0-0.7); LYMPHOCYTES ABSOLUTE AUTO 1.63 K/uL (0.8-3.3); LYMPHOCYTES PERCENT AUTO 16.4 % (11.4-47.7); MEAN CORPUSCULAR HEMOGLOBIN 27.1 pg (31.6-35.5); MEAN CORPUSCULAR HGB CONC 34.5 g/dL (31.6-35.5); MEAN CORPUSCULAR VOLUME 78.7 fL (81.4-99.0); MONOCYTES ABSOLUTE AUTO 0.98 K/uL (0.20-0.90); MONOCYTES PERCENT AUTO 9.9 % (3.3-12.6); NEUTROPHILS PERCENT AUTO 71.6 % (40.0-78.1); PLATELET COUNT,PLT 387 K/uL (130-375); RED BLOOD CELL COUNT 4.17 M/uL (3.77-5.24); WHITE BLOOD CELL COUNT,WBC 9.9 K/uL (3.2-11.0)
[2023-05-28 18:02] LABS: ANION GAP 12.5 mmol/L (5.0-14.0); CALCIUM 8.6 mg/dL (8.5-10.1); EST CRCL DRUG DOSING (CG) 35.26 mL/min; POTASSIUM,K 4.5 mmol/L (3.6-5.2)
[2023-05-28 19:20] VITALS: BP 161/75; PULSE 68
== END 2023-05-28 19:30 | disposition home or self-care (01) ==
LOC: JP.ED 15:39
DX: E87.1 Hypo-osmolality and hyponatremia (principal); E78.00 Pure hypercholesterolemia, unspecified; I10 Essential (primary) hypertension; E03.9 Hypothyroidism, unspecified; Z79.899 Other long term (current) drug therapy; Z91.040 Latex allergy status; Z88.8 Allergy status to other drugs, medicaments and biological substances; Z91.048 Other nonmedicinal substance allergy status; Z88.7 Allergy status to serum and vaccine
CPT/HCPCS: 36415; 80048; 85025; 96360; 99284; J7030

== ENCOUNTER 2023-08-21 07:28 | Day surgery (SDC) | payer MEDICARE, BC ==
[~2023-08-21 07:28] MED LIST changes: +Bupivacaine 0.5% 30 ML SDV ONE; -Midazolam 1 MG/ML 2 ML SDV ONE; -Propofol 200 MG/20 ML SDV ONE; -Sodium Chloride 0.9% 10 ML ONE; -fentaNYL 100 MCG/2 ML SDV ONE
[2023-08-21] MEDS ORDERED: Propofol 200 MG/20 ML SDV ONE (07:30)
[2023-08-21] MEDS ORDERED: fentaNYL 100 MCG/2 ML SDV ONE (07:30)
[2023-08-21] MEDS ORDERED: Lidocaine 0.5% 50 ML SDV ONE (07:31)
[2023-08-21] MEDS ORDERED: Nozin Nasal Sanitizer NASBOTH ONE (07:45)
[2023-08-21] MEDS ORDERED: Lactated Ringers 1,000 ML IV SCH (07:45)
[2023-08-21] MEDS ORDERED: ceFAZolin 1 GM in Premix Bag 1 BAG IV ONE (07:45)
[2023-08-21 08:02] LABS: HEMATOCRIT 32.9 % (34.3-46.0); HEMOGLOBIN 10.8 g/dL (11.2-15.5); MEAN CORPUSCULAR HEMOGLOBIN 26.9 pg (31.6-35.5); MEAN CORPUSCULAR HGB CONC 32.8 g/dL (31.6-35.5); RED BLOOD CELL COUNT 4.01 M/uL (3.77-5.24); WHITE BLOOD CELL COUNT,WBC 4.8 K/uL (3.2-11.0)
[2023-08-21 08:27] LABS: A/G RATIO 1.2 (1.2-2.2); ALANINE AMINOTRANSFERASE,ALT 27 U/L (12-78); ALBUMIN 3.6 g/dL (3.4-5.0); ALKALINE PHOSPHATASE 113 U/L (46-116); ASPARTATE AMNIOTRANSFERASE,AST 19 U/L (15-37); BILIRUBIN TOTAL 0.5 mg/dL (0.2-1.0); BLOOD UREA NITROGEN,BUN 26 mg/dL (7-18); CALCIUM 8.5 mg/dL (8.5-10.1); CARBON DIOXIDE,CO2 27 mmol/L (21-32); CHLORIDE,CL 106 mmol/L (100-108); CREATININE 1.1 mg/dL (0.6-1.0); EST CRCL DRUG DOSING (CG) 31.49 mL/min; ESTIMATED GFR 50 mL/min (>60); GLUCOSE RANDOM 108 mg/dL (74-106); POTASSIUM,K 3.5 mmol/L (3.6-5.2); PROTEIN TOTAL,TP 6.6 g/dL (6.4-8.2); SODIUM,NA 141 mmol/L (140-148)
[2023-08-21 08:32] LABS: ANION GAP 11.5 mmol/L (5.0-14.0)
[2023-08-21 12:32] VITALS: BP 150/72; PULSE 58
== END 2023-08-21 12:30 | disposition home or self-care (01) ==
LOC: JP.SDS 07:28
PROVIDERS: ATTEND Specialist
DX: M65.342 Trigger finger, left ring finger (principal); M65.9 Synovitis and tenosynovitis, unspecified; I10 Essential (primary) hypertension; E78.5 Hyperlipidemia, unspecified; K21.9 Gastro-esophageal reflux disease without esophagitis
CPT/HCPCS: 26055; 36415; 80053; 85027; A9270; J0690; J2704; J3010; J3490; J7120

== ENCOUNTER 2024-04-15 09:15 | Inpatient (IN) | payer MEDICARE ==
[2024-04-15 09:57] LABS: HEMATOCRIT 33.7 % (34.3-46.0); HEMOGLOBIN 11.6 g/dL (11.2-15.5); MEAN CORPUSCULAR HEMOGLOBIN 28.1 pg (31.6-35.5); MEAN CORPUSCULAR HGB CONC 34.4 g/dL (31.6-35.5); MEAN CORPUSCULAR VOLUME 81.6 fL (81.4-99.0); RED BLOOD CELL COUNT 4.13 M/uL (3.77-5.24); WHITE BLOOD CELL COUNT,WBC 5.1 K/uL (3.2-11.0)
[2024-04-15 10:17] LABS: A/G RATIO 1.2 (1.2-2.2); ALANINE AMINOTRANSFERASE,ALT 24 U/L (12-78); ALBUMIN 3.9 g/dL (3.4-5.0); ALKALINE PHOSPHATASE 111 U/L (46-116); ASPARTATE AMNIOTRANSFERASE,AST 19 U/L (15-37); BILIRUBIN TOTAL 0.5 mg/dL (0.2-1.0); BLOOD UREA NITROGEN,BUN 24 mg/dL (7-18); CALCIUM 8.8 mg/dL (8.5-10.1); CARBON DIOXIDE,CO2 28 mmol/L (21-32); CHLORIDE,CL 105 mmol/L (100-108); CREATININE 1.3 mg/dL (0.6-1.0); EST CRCL DRUG DOSING (CG) 26.65 mL/min; ESTIMATED GFR 41 mL/min (>60); GLUCOSE RANDOM 101 mg/dL (74-106); POTASSIUM,K 3.8 mmol/L (3.6-5.2); PROTEIN TOTAL,TP 7.1 g/dL (6.4-8.2); SODIUM,NA 142 mmol/L (140-148)
[2024-04-15] MEDS ORDERED: Propofol 200 MG/20 ML SDV ONE ×2 (10:26→15:37)
[2024-04-15] MEDS ORDERED: Midazolam 1 MG/ML 2 ML SDV ONE (10:26)
[2024-04-15] MEDS ORDERED: fentaNYL 100 MCG/2 ML SDV ONE (10:26)
[2024-04-15] MEDS: Lactated Ringers 1,000 ML IV SCH (10:29)
[2024-04-15] MEDS: Nozin Nasal Sanitizer NASBOTH SCH ×2 (10:37→21:15)
[2024-04-15] MEDS ORDERED: Magnesium Hydroxide 400 MG/5 ML Susp 30 ML Cup PO PRN (14:16)
[2024-04-15] MEDS ORDERED: Morphine 2 MG/ML SYRINGE IVPUSH PRN (14:16)
[2024-04-15] MEDS: ceFAZolin 2 GM in Premix Bag 1 BAG IV ONE (14:20)
[2024-04-15] MEDS: Tranexamic Acid 660 MG in Sodium Chloride 0.9% 50 ML IV ONE (14:40)
[2024-04-15] MEDS: Bupivacaine 0.5% 50 ML MDV ONE (15:24)
[2024-04-15] MEDS: Sodium Chloride 0.9% 1,000 ML IV SCH (17:09)
[2024-04-15] MEDS: Acetaminophen 325 MG Tab PO SCH ×2 (17:16→17:42)
[2024-04-15] MEDS ORDERED: ceFAZolin 2 GM in Sodium Chloride 0.9% 100 ML IV SCH (18:00)
[2024-04-15] MEDS ORDERED: ceFAZolin 2 GM in Premix Bag 1 BAG IV SCH (18:00)
[2024-04-15] MEDS: Ketorolac 30 MG/ML SDV IVPUSH PRN (18:09)
[2024-04-15] MEDS: traMADol 50 MG Tab PO PRN (18:10)
[2024-04-15] MEDS: Ondansetron 4 MG/2 ML SDV IVPUSH PRN (18:59)
[2024-04-15] MEDS: Latanoprost 0.005% Ophth Soln 2.5 ML Bottle EYEBOTH SCH (21:16)
[2024-04-15] MEDS: ceFAZolin 2 GM in Premix Bag 1 BAG IV SCH (21:17)
[2024-04-15] MEDS: atorvaSTATin 10 MG Tab PO SCH (21:19)
[2024-04-16] MEDS: Levothyroxine 25 MCG Tab PO SCH (07:27)
[2024-04-16] MEDS: Hydrochlorothiazide 25 MG Tab PO SCH (08:34)
[2024-04-16] MEDS: Aspirin 325 MG Tab.EC PO SCH (08:34)
[2024-04-16] MEDS: Lactobacillus Rhamnosus GG (Probiotic) Cap PO SCH (08:34)
[2024-04-16] MEDS: Famotidine 20 MG Tab PO SCH (08:34)
[2024-04-16] MEDS: Multivitamins with Iron/Calcium/Folic Acid/Minerals Tab PO SCH (08:35)
[2024-04-16] MEDS: Timolol Maleate 0.5% Ophth Soln 5 ML Bottle EYEBOTH SCH (08:35)
[2024-04-17] MEDS: Docusate Sodium 100 MG Cap PO PRN (08:04)
[2024-04-17 11:31] VITALS: BP 142/61; PULSE 61
== END 2024-04-17 13:00 | disposition home or self-care (01) | DRG 470 ==
LOC: JP.SDS 09:15 → JP.MS 14:16 → JP.SDS 04-16 08:10 → JP.MS 04-16 08:10
PROVIDERS: ADMIT Specialist; ATTEND Specialist
PROC: 0SRD0J9 Replacement of Left Knee Joint with Synthetic Substitute, Cemented, Open Approach (ICD-10-PCS; principal; 2024-04-15 11:00)
DX: M17.12 Unilateral primary osteoarthritis, left knee (principal)
CPT/HCPCS: 01402-QZ; 36415; 73560-26-LT; 73560-LT; 80053; 85027; 97110-GP; 97116-GP; 97161-GP; 97530-GP; A9270-GY; C1713; C1776; J0665; J0690; J1885; J2250; J2405; J2704; J3010; J3490; J7030; J7120